=== PATIENT | male | born 1965 | race Caucasian/White ===

== ENCOUNTER → 2017-08-25 | Outpatient (CLI) | payer MEDICARE, BC ==
[~2017-08-25] MED LIST: ALPR0.25 PO; IRBE75TA5 PO; ROPI4TAB PO
--- NOTE | 2017-08-25 17:51 | ECGEPIP ---
Stationary ECG Study [facility] Test Date: 2017-08-25 Pat Name: JORDAN KRAFT Department: Room: - Gender: M Medical Language Specialist: KERWIN : 1965 Requested By: KARLA Flowers Order Number: [id number] Reading MD: Kemi Sterling Measurements Intervals [place] Rate: 73 P: 46 NC: 164 QRS: 37 QRSD: 106 T: 25 QT: 390 QTc: 433 Interpretive Statements SINUS RHYTHM Electronically Signed On 08-25-2017 17:51:05 EST by Kemi Sterling
== END ==
LOC: M EKG 16:13
PROVIDERS: ATTEND Anesthesiology
DX: Z01.818 Encounter for other preprocedural examination (principal)

== ENCOUNTER 2017-08-31 07:28 | Day surgery (SDC) | payer MEDICARE, BC ==
[~2017-08-31] VITALS: Ht 175.3 cm; Wt 132.0 kg
[2017-08-31] MEDS ORDERED: LR 1,000 ML IV ONE (07:45)
[2017-08-31] MEDS ORDERED: dexameTHASONE 4 MG/ML 1ML VIAL (J1100) IV ONE (07:45)
[2017-08-31] MEDS ORDERED: LIDOCAINE 1% MDV 20ML VIAL SQ PRN (07:45)
[2017-08-31] MEDS ORDERED: LIDOCAINE W/EPINEPHRINE 1% 20ML VIAL As Ordered ONE (08:31)
[2017-08-31] MEDS ORDERED: PROPOFOL 200 MG/20 ML VIAL As Ordered ONE (08:37)
[2017-08-31] MEDS ORDERED: ROCURONIUM BROMIDE 50 MG/5 ML VIAL As Ordered ONE (08:37)
[2017-08-31] MEDS ORDERED: SUCCINYLCHOLINE 100 MG/5 ML SYRINGE (J0330) As Ordered ONE (08:37)
[2017-08-31] MEDS ORDERED: LIDOCAINE 2% INJ 100 MG/5 ML SDV (FOR ANES.) As Ordered ONE (08:37)
[2017-08-31] MEDS ORDERED: MIDAZOLAM INJ 2 MG/2 ML VIAL (J2250) As Ordered ONE (08:37)
[2017-08-31] MEDS ORDERED: fentaNYL 100 MCG/2 ML INJECTION (J3010) As Ordered ONE (08:38)
[2017-08-31] MEDS ORDERED: fentaNYL 100 MCG/2 ML INJECTION (J3010) IV PRN (10:30)
[2017-08-31] MEDS ORDERED: LR 1,000 ML IV SCH ×2 (10:30)
[2017-08-31] MEDS ORDERED: ONDANSETRON 4MG/2ML VIAL (J2405) IV PRN (10:30)
[2017-08-31 11:20] VITALS: BP 108/73
--- NOTE | 2017-09-23 15:17 | RO ---
DATE OF PROCEDURE: 08/31/2017 PREPROCEDURE DIAGNOSIS: sensation and enlargement of the uvula. POSTPROCEDURE DIAGNOSIS: sensation and enlargement of the uvula. PROCEDURE PERFORMED: Uvulectomy. SURGEON: Gee Marte MD CONTROLLER INSTRUCTOR: ANESTHESIA: General. CLINICAL PREAMBLE: This 52-year-old man presented to the office with a history of sensation. Physical examination revealed enlarged uvula with its tip touching the surface of the base of the tongue. Management options, including surgery listed above have been discussed and the patient understood and consented to the procedure. DESCRIPTION OF PROCEDURE: The patient was identified in preoperative holding and brought to the operating room in stable condition. In supine position on the operating room table, the patient received general anesthesia followed by orotracheal intubation. The Louis-Genaro mouth gag was inserted and suspended. The large uvula was visualized. Using 1% lidocaine with 1:100,000 epinephrine in the base of the uvula was infiltrated. Mucosal incision was made using the . The entire uvula was then successfully excised. The posterior edge of the soft palate was then reapproximated using Vicryl sutures. At the end of the procedure, sponge and instrument counts were correct. No complications encountered. Estimated blood loss was less than 5 mL. General anesthesia was reversed and the patient was extubated and brought to the recovery room in stable condition.
== END 2017-08-31 11:35 | disposition home or self-care (01) ==
LOC: M SDC 07:28
PROVIDERS: ATTEND Otolaryngology
DX: K13.79 Other lesions of oral mucosa (principal); I10 Essential (primary) hypertension; M54.9 Dorsalgia, unspecified; M12.9 Arthropathy, unspecified; R29.898 Other symptoms and signs involving the musculoskeletal system; F41.9 Anxiety disorder, unspecified; F43.10 Post-traumatic stress disorder, unspecified; R06.83 Snoring; G47.9 Sleep disorder, unspecified; Z91.018 Allergy to other foods; Z79.899 Other long term (current) drug therapy; Z98.84 Bariatric surgery status
CPT/HCPCS: 42140; 88305; J0330; J1100; J2250; J3010

== ENCOUNTER → 2018-05-10 | Outpatient (CLI) | payer MEDICARE, BC ==
[2018-05-10 10:31] LABS: COLLAGEN EPINEPHRINE 103 SECONDS (74-162)
== END ==
LOC: M LAB 08:09
DX: H02.423 Myogenic ptosis of bilateral eyelids (principal)
CPT/HCPCS: 36415

== ENCOUNTER → 2020-02-05 | Outpatient (CLI) | payer MEDICARE, BC ==
[~2020-02-05] MED LIST changes: +IRBE75TA4 PO; -IRBE75TA5 PO; +PROHANCE 279.3MG/ML 15ML VIAL As Ordered ONE; +PROHANCE 279.3MG/ML 5ML VIAL As Ordered ONE; -ROPI4TAB PO; +ROPI4TAB3 PO
--- NOTE | 2020-02-05 22:48 | REP ---
MRI CERVICAL SPINE WITHOUT CONTRAST: HISTORY: Neck pain. Other intervertebral disc degeneration. No comparison cervical imaging. TECHNIQUE: Sagittal and axial T1- and T2-weighted scans are acquired in the usual fashion with and without fat saturation. Sequences include spin echo, turbo spin echo, and STIR imaging sequences. MRI FINDINGS: There is straightening of the normal cervical lordosis. Vertebral body heights are preserved. Alignment is normal. No bony destructive lesion is seen. The cervical cord is normal in coarse, caliber, and signal intensity on T1- and T2-weighted scans. Craniocervical junction is unremarkable. No cord compressive lesion is seen. At C2-3, there is mild central disc bulging. No other finding. At C3-4, there is also mild central disc bulging. No spinal stenosis or foraminal narrowing is seen. The C4-5 disc is somewhat narrowed in height. There is a very small central focal disc protrusion effacing the ventral subarachnoid space but not contacting the cord. Mild facet hypertrophy is present. At C5-6, there is minimal diffuse disc bulging. No spinal stenosis or foraminal narrowing is seen. At C6-7, there is mild diffuse disc bulging. No spinal stenosis or neural foraminal narrowing is seen. The C7-T1 level is unremarkable. IMPRESSION: Mild degenerative disc changes and facet hypertrophy. No evidence of cord compression. No neural foraminal narrowing identified. Electronically Signed by Fritz Walters MD 02/06/2020 11:22 A
--- NOTE | 2020-02-05 22:49 | REP ---
MRI THORACIC SPINE WITHOUT CONTRAST: HISTORY: Neck pain and radiating low back pain. No comparison thoracic spine imaging. TECHNIQUE: Sagittal and axial T1- and T2-weighted scans are acquired in the usual fashion with and without fat saturation. Sequences include spin echo, turbo spin echo, and STIR imaging sequences. MRI FINDINGS: There is a hemangioma noted in the T8 vertebral body measuring 1.8 cm in greatest diameter. No bony destructive lesion is seen. Thoracic vertebral body heights are preserved. Alignment is normal. Thoracic cord is normal in coarse, caliber, and signal intensity on T1- and T2-weighted scans. No neural foraminal lesion is seen. No thoracic disc protrusion is observed. Disc spaces are preserved. IMPRESSION: Incidental benign hemangioma in the T8 vertebral body. Otherwise, negative MRI thoracic spine. Electronically Signed by Fritz Walters MD 02/06/2020 11:22 A
--- NOTE | 2020-02-06 09:22 | REP ---
MRI LUMBAR SPINE WITHOUT AND WITH IV CONTRAST: HISTORY: Radiating low back pain and neck pain. TECHNIQUE: Sagittal and axial T1- and T2-weighted scans are acquired in the usual fashion with and without fat saturation. Sequences include spin echo, turbo spin-echo, and STIR imaging sequences. The gadolinium enhancement dose is 20 mL of intravenous ProHance. Comparison CT study is from July 31, 2011. MRI FINDINGS: In the interval since [address] study, the lumbosacral spine fusion has been revised and pedicle screws are now noted in place bilaterally at L4, L5 and S1 with dorsal interconnecting fixation rods. These metallic components cast magnetic field susceptibility artifact to some degree. Laminectomies are visible on L4, L5 and S1. There is post laminectomy expansion of the thecal sac at these levels and no central canal stenosis is noted. The previously noted minimal L4-5 spondylolisthesis is unchanged. No other evidence of malalignment is seen. There are two small benign hemangiomas of the L2 vertebral body level. Larger of these is visible in retrospect on the prior CT and is unchanged. No bony destructive lesion is seen. Vertebral body heights are preserved. The tip of the conus medullaris is normal in position and appearance at L1. There is minimal diffuse disc bulging at the T11-12 and T12-L1 discs. No cord compression is seen. At L1-L2, there is no evidence of disc protrusion or spinal stenosis. No foraminal narrowing is seen. The L2-3 level shows mild facet and ligamentum flavum hypertrophy and minimal disc space narrowing. There is mild disc bulging in the foraminal segments bilaterally but the nerve roots exit the neural foramen surrounded by epidural fat and without evidence of compression. At L3-4, there is no evidence of disc protrusion. There is some ligamentum flavum hypertrophy. No foraminal stenosis or central canal stenosis seen. IMPRESSION: Status post laminectomy and dorsal fixation fusion L4 through S1 bilaterally. Fusion of the L4-5 and L5-S1 disc spaces. No spinal stenosis or neural foraminal narrowing is seen. Minimal degenerative disc changes noted in the upper lumbar spine. Electronically Signed by Fritz Walters MD 02/06/2020 11:25 A
== END ==
LOC: M RAD 14:18
DX: M51.36 Other intervertebral disc degeneration, lumbar region (principal); M54.16 Radiculopathy, lumbar region; M50.20 Other cervical disc displacement, unspecified cervical region; M50.322 Other cervical disc degeneration at C5-C6 level; D18.09 Hemangioma of other sites
CPT/HCPCS: 72141; 72146; 72158; A9576

== ENCOUNTER → 2020-07-29 | Outpatient (REF) | payer MEDICARE, BC ==
[~2020-07-29] MED LIST changes: -PROHANCE 279.3MG/ML 15ML VIAL As Ordered ONE; -PROHANCE 279.3MG/ML 5ML VIAL As Ordered ONE
[2020-07-29 10:21] LABS: BASO % 0.4 % (0.0-1.0); EOS # 0.2 10^3/uL (0.0-0.5); EOS % 2.1 % (0.0-3.0); HEMATOCRIT 42.1 % (42.0-52.0); HEMOGLOBIN 13.3 g/dl (13.5-17.5); MEAN CORPUSCULAR HEMOGLOBIN 28.2 pg (27.0-33.0); MEAN CORPUSCULAR HGB CONC 31.6 g/dl (32.0-36.5); MEAN CORPUSCULAR VOLUME 89.4 fl (80.0-96.0); MONO # 0.8 10^3/uL (0.0-0.8); MONO % 8.3 % (0.0-5.0); NEUTROPHILS # 6.5 10^3/uL (1.5-8.5); NEUTROPHILS % 67.8 % (36.0-66.0); PLATELET COUNT, AUTOMATED 226 10^3/uL (150-450); RED BLOOD COUNT 4.71 10^6/uL (4.30-6.10); WHITE BLOOD COUNT 9.6 10^3/uL (4.0-10.0)
[2020-07-29 11:01] LABS: ALBUMIN 3.7 GM/DL (3.2-5.2); ALT/SGPT 23 U/L (12-78); BILIRUBIN,TOTAL 0.3 MG/DL (0.2-1.0); BLOOD UREA NITROGEN 12 MG/DL (7-18); CALCIUM LEVEL 8.7 MG/DL (8.5-10.1); CARBON DIOXIDE LEVEL 27 MEQ/L (21-32); CHLORIDE LEVEL 110 MEQ/L (98-107); CREATININE FOR GFR 0.81 MG/DL (0.70-1.30); GLOMERULAR FILTRATION RATE > 60.0 (>56); GLUCOSE, FASTING 67 MG/DL (70-100); POTASSIUM SERUM 3.7 MEQ/L (3.5-5.1); SODIUM LEVEL 142 MEQ/L (136-145); TOTAL PROTEIN 6.7 GM/DL (6.4-8.2)
[2020-07-30 18:11] LABS: G6PD2 4.81 x10E6/uL (4.14-5.80)
== END ==
LOC: M SFHCPLAZ 08:55
PROVIDERS: ATTEND Physician Assistant
DX: L13.0 Dermatitis herpetiformis (principal)
CPT/HCPCS: 36415; 80053; 82955; 85025; G0463

== ENCOUNTER → 2020-08-20 | Outpatient (REF) | payer MEDICARE, BC ==
[2020-08-20 11:31] LABS: BASO % 0.3 % (0.0-1.0); EOS # 0.2 10^3/uL (0.0-0.5); EOS % 2.2 % (0.0-3.0); HEMATOCRIT 41.8 % (42.0-52.0); HEMOGLOBIN 13.1 g/dl (13.5-17.5); LYMPH # 2.3 10^3/uL (1.5-5.0); MEAN CORPUSCULAR HEMOGLOBIN 28.2 pg (27.0-33.0); MEAN CORPUSCULAR HGB CONC 31.3 g/dl (32.0-36.5); MEAN CORPUSCULAR VOLUME 90.1 fl (80.0-96.0); MONO # 0.8 10^3/uL (0.0-0.8); MONO % 7.7 % (0.0-5.0); NEUTROPHILS # 6.3 10^3/uL (1.5-8.5); NEUTROPHILS % 65.3 % (36.0-66.0); PLATELET COUNT, AUTOMATED 239 10^3/uL (150-450); RED BLOOD COUNT 4.64 10^6/uL (4.30-6.10); WHITE BLOOD COUNT 9.7 10^3/uL (4.0-10.0)
[2020-08-20 11:59] LABS: ALBUMIN 3.7 GM/DL (3.2-5.2); ALT/SGPT 35 U/L (12-78); BILIRUBIN,TOTAL 0.8 MG/DL (0.2-1.0); BLOOD UREA NITROGEN 16 MG/DL (7-18); CALCIUM LEVEL 9.1 MG/DL (8.5-10.1); CARBON DIOXIDE LEVEL 30 MEQ/L (21-32); CHLORIDE LEVEL 108 MEQ/L (98-107); CREATININE FOR GFR 0.89 MG/DL (0.70-1.30); GLOMERULAR FILTRATION RATE > 60.0 (>56); GLUCOSE, FASTING 92 MG/DL (70-100); POTASSIUM SERUM 4.2 MEQ/L (3.5-5.1); SODIUM LEVEL 142 MEQ/L (136-145); TOTAL PROTEIN 6.6 GM/DL (6.4-8.2)
== END ==
LOC: M PLALAB 09:11
PROVIDERS: ATTEND Physician Assistant
DX: L13.0 Dermatitis herpetiformis (principal)

== ENCOUNTER → 2023-06-04 | Outpatient (REF) | payer MEDICARE, BC ==
[~2023-06-04] MED LIST changes: -ROPI4TAB3 PO; +ROPI4TAB36 PO
== END ==
LOC: M SFHCDERM 15:06
PROVIDERS: ATTEND Physician Assistant
DX: L13.0 Dermatitis herpetiformis (principal)